=== PATIENT | male | born 1950 | race Caucasian/White ===

== ENCOUNTER 2016-07-08 05:06 | Observation (INO) | payer OTHER ==
[2016-06-18 08:07] VITALS: BMI 24.0
[~2016-07-08] VITALS: Ht 175.3 cm; Wt 74.1 kg
[2016-07-08] VITALS (10 sets, daily range): BP systolic 137–161; BP diastolic 73–92; PULSE 54–80; TEMP 36.4–37.1; O2SAT 93–100; Ht 175.3 cm; Wt 74.1 kg
[~2016-07-08 05:06] MED LIST: IBUP-1050 PO; LSN40 PO; PRAV20TA PO; TADA10TA PO
[2016-07-08] MEDS ORDERED: CEFAZOLIN 2000 MG/60 ML D5W IV SCH (06:00)
[2016-07-08] MEDS ORDERED: LACTATED RINGER'S 1000ML 1,000 ML IV SCH (06:15)
[2016-07-08] MEDS ORDERED: MIDAZOLAM HCL 1 MG/ML 2ML VIAL ONE (06:49)
[2016-07-08] MEDS ORDERED: FENTANYL CITRATE INJ 50 MCG/1 ML 2 ML VIAL ONE ×2 (06:49→07:24)
[2016-07-08] MEDS ORDERED: SUCCINYLCHOLINE CHLORIDE 20 MG/ML 10 ML VIAL IV ONE (07:14)
[2016-07-08] MEDS ORDERED: ONDANSETRON INJ 2 MG/ML 2 ML VIAL ONE (07:14)
[2016-07-08] MEDS ORDERED: ROCURONIUM BROMIDE 10 MG/ML 5 ML VIAL ONE (07:14)
[2016-07-08] MEDS ORDERED: DEXAMETHASONE SOD INJ 4 MG/ML VIAL ONE (07:14)
[2016-07-08] MEDS ORDERED: LIDOCAINE HCL 2% 2 ML VIAL (20MG/ML) ONE (07:14)
[2016-07-08] MEDS ORDERED: PROPOFOL IV EMULSION 10 MG/ML 20 ML VIAL IV ONE (07:14)
[2016-07-08] MEDS ORDERED: EpHEDrine SULFATE INJ 50 MG/ML AMP ONE (08:02)
[2016-07-08] MEDS ORDERED: ONDANSETRON INJ 2 MG/ML 2 ML VIAL IV PRN ×2 (08:15→09:00)
[2016-07-08] MEDS ORDERED: EpHEDrine SULFATE INJ 50 MG/ML AMP IV PRN (08:15)
[2016-07-08] MEDS ORDERED: CEFAZOLIN SOD 1 GM VIAL IRRIG ONE (08:15)
[2016-07-08] MEDS ORDERED: ATROPINE SULFATE 0.1 MG/ML 5ML SYR IV PRN (08:15)
[2016-07-08] MEDS ORDERED: FLUMAZENIL 0.1 MG/1 ML 10 ML VIAL IV PRN (08:15)
[2016-07-08] MEDS ORDERED: LABETALOL HCL IV 5 MG/ML 20ML IV PRN (08:15)
[2016-07-08] MEDS ORDERED: NALOXONE HCL 0.4 MG/1 ML VIAL/CARP IV PRN (08:15)
[2016-07-08] MEDS ORDERED: PROMETHAZINE HCL INJ 12.5 MG in SODIUM CHLORIDE 0.9% 50ML 50 ML IV PRN ×2 (08:15→10:30)
[2016-07-08] MEDS ORDERED: BUPIVACAINE 0.5 % 5 MG/1 ML MPF 30ML VIAL INJ ONE (08:32)
--- NOTE | 2016-07-08 08:42 | [facility] Operative Report ---
Operative Report Operative Date Jul 08, 2016. Pre-Operative Diagnosis Bilateral inguinal hernias Post-Operative Diagnosis same Procedure(s) Performed laparoscopic Lt inguinal hernia repair open Rt ing hernia repair Surgeon Dr.Robert Castañeda Manager Continuous Improvement Surgeon(s) Nabor Dubois PA-C Findings bilateral direct and indirect defects w/ lipomas Specimens none per surgeon Anesthesia gen Complication(s) None Disposition Recovery Room / PACU I attest to the content of the Intraoperative Record and any orders documented therein. Any exceptions are noted below.
[2016-07-08] MEDS ORDERED: MoRPHine SULFATE 4 MG/ML 1 ML CARP\\VIAL IV PRN (09:00)
[2016-07-08] MEDS ORDERED: MoRPHine SULFATE 2 MG/ML CARP IV PRN (09:00)
[2016-07-08] MEDS ORDERED: PROMETHAZINE HCL INJ 25 MG in SODIUM CHLORIDE 0.9% 50ML 50 ML IV PRN (09:00)
[2016-07-08] MEDS ORDERED: HYDROCODONE/ACETAMOPHEN 5/325MG TAB PO PRN ×2 (09:00)
[2016-07-08] MEDS: HYDROmorphone INJ 1 MG/ML SYR IV PRN ×4 (09:09→09:24)
--- NOTE | 2016-07-08 09:18 | OPERATIVE REPORT ---
DATE OF OPERATION: 07/08/2016 NAME OF OPERATION: Laparoscopic left inguinal hernia repair and open right inguinal hernia repair. PREOPERATIVE DIAGNOSIS: Bilateral inguinal hernias. POSTOPERATIVE DIAGNOSIS: Same. STAFF SURGEON: Dr. Castañeda. ECD: Eliceo Dubois PA-C. ANESTHESIA: General. FINDINGS: The patient had bilateral direct and indirect defects with lipomas. PROCEDURE: The patient was brought into the operating room and placed on the operating table in a supine position. Pneumatic stockings, Zee catheter, orogastric tube were placed. His tissue was anesthetized using 0.5% plain Marcaine in the skin and subcutaneous tissue area. Initial incision was made above the umbilicus through previous scar tissue from laparoscopic cholecystectomy, carrying dissection down to the fascia, placing a Veress needle producing pneumoperitoneum. A 5 mm port was placed initially and then an 11 mm port placed at this level, and then a camera passed. Under visualization, two 5 mm ports were placed, one in left and right lateral. On inspection, the patient had a large right inguinal hernia, which I felt should be repaired open, and then a more small to moderate left inguinal hernia. It was apparent that both hernias were direct and indirect defects. The left side was approached. The peritoneum was brought down away from the fascia from medial to lateral superior to the defects, reducing both the direct and indirect hernia sacs and the lipoma. At this point, a large mesh patch was obtained and placed into the abdomen. It was then placed into the site of dissection covering both defects very well. It was secured superiorly using absorbable tacks. The peritoneum was then brought up over the mesh and secured using absorbable tacks. At this point, the pneumoperitoneum was reduced. All ports were removed. The fascia at the umbilicus closed using interrupted 0 Vicryl suture, and then the skin reapproximated using 5-0 Prolene suture. At this point, the right inguinal area was approached. The skin was anesthetized using 0.5% plain Marcaine, and then incision made parallel to the inguinal ligament, carrying dissection down identifying the external oblique fibers. These were then incised along their length to the external ring, mobilizing the cord structures. The patient had a direct hernia sac, an indirect hernia sac and a lipoma of the cord. The lipoma was excised and ligated using 2-0 silk suture. I was able to identify the ilioinguinal and iliohypogastric nerves. At this point, both defects were repaired using mesh plugs placed into the direct and indirect defects, secured to surrounding tissue using 2-0 Ethibond suture, and then a large mesh patch placed into the floor of the canal over the mesh plugs, around the cord structures, secured using 2-0 Ethibond suture. The external oblique fibers were then closed over the mesh using 2-0 Ethibond suture. The site was irrigated with antibiotic solution, and then the subcutaneous tissue reapproximated using 2-0 plain catgut suture, then the skin reapproximated using 4-0 nylon suture and Steri-Strips. As a note, on the right side in the area of the incision was a small area which appeared to be a blackhead, which was excised. At this point, dressings were applied and the patient transferred to recovery room in stable condition. I attest to the content of the Intraoperative Record and any orders documented therein. Any exceptio ns are noted below.
[2016-07-08] MEDS ORDERED: GLYCOPYRROLATE INJ 0.2 MG/ML VIAL ONE (09:45)
[2016-07-08] MEDS ORDERED: NEOSTIGMINE METHYLSULFATE 5 MG/5 ML SYR ONE (09:45)
--- NOTE | 2016-07-08 09:57 | Anesthesiology Progress Note ---
Anesthesia Post Op Note Date & Time Jul 08, 2016 at 09:57 Vital Signs Pain Intensity: 3 Vital Signs Past 12 Hours Date Time Temp Pulse Resp B/P Pulse Ox O2 Delivery O2 Flow Rate FiO2 07/08/16 09:55 62 15 145/78 100 Nasal Cannula 2 07/08/16 09:45 62 17 159/82 100 Nasal Cannula 2 07/08/16 09:35 36.1 58 15 142/84 99 Nasal Cannula 2 07/08/16 09:25 59 14 139/80 99 Nasal Cannula 2 07/08/16 09:15 67 29 148/71 100 Mask 10 07/08/16 09:05 72 20 137/76 100 Mask 10 07/08/16 08:58 36.8 71 18 147/82 100 Mask 10 07/08/16 05:36 36.7 56 18 156/92 100 Room Air Notes Mental Status: alert / awake / arousable, participated in evaluation Pt Amnestic to Procedure: Yes Nausea / Vomiting: adequately controlled Pain: adequately controlled Airway Patency, RR, SpO2: stable & adequate BP & HR: stable & adequate Hydration State: stable & adequate Anesthetic Complications: no major complications apparent
[2016-07-08] MEDS: LACTATED RINGER'S 1000ML 1,000 ML IV SCH (10:35)
[2016-07-08] MEDS ORDERED: IV FLUIDS COMPLETED PRN (10:45)
[2016-07-08] MEDS: LISINOPRIL 40 MG TAB PO SCH (12:26)
[2016-07-08] MEDS: KETOROLAC TROMETHAMINE 30 MG/ML VIAL IV. SCH ×3 (12:27→22:19)
[2016-07-08] MEDS: CEFAZOLIN IV 1,000 MG in DEXTROSE 5% 50ML 50 ML IV SCH ×3 (12:27→23:45)
[2016-07-08] MEDS ORDERED: HYDR-5688 PO (12:32)
[2016-07-08] MEDS ORDERED: CEPH500C2 PO (12:32)
--- NOTE | 2016-07-08 12:36 | Discharge Instructions ---
Discharge Instructions Admission Reason for Admission: Left Inguinal Hernia Discharge Discharge Diagnosis / Problem: bilateral inguinal hernias Discharge Goals Goal(s): Decrease discomfort, Improve function, Improve disease control Activity Recommendations Activity Limitations: as noted below Exercise/Sports Limitations: until after follow-up appointment May Resume Sexual Activity: when tolerated Driving or Machine Use: 5-7 days lifting less than 20 lbs may shower over incisions 07/10 . Instructions / Follow-Up Instructions / Follow-Up SPECIAL CARE INSTRUCTIONS: * Cover incisions and change daily for comfort/drainage. * Leave steri strips in place * Avoid constipation- may use Senokot S and Milk of Magnesia twice daily as directed on package * May use ibuprofen for pain as tolerated. * Expect some swelling and bruising. Call your doctor if: * Temperature above 101 degrees * Pain not relieved by pain medicine ordered * There is increased drainage or redness from any incision * You have any unanswered questions or concerns [phone]. FOLLOW UP VISIT: If not already scheduled, please call the office for a follow-up visit. for next week- wound check and some sutures OFFICE PHONE NUMBER: Dr. Castañeda Office Current Hospital Diet Patient's current hospital diet: Regular Diet Discharge Diet Recommended Diet: Regular Diet Procedures Procedures Performed: Left Laparoscopic Inguinal Hernia Repair with insertion of mesh; Open Right Inguinal Hernia Repair with insertion of mesh Pending Studies Studies pending at discharge: no Medical Emergencies . Who to Call and When: Medical Emergencies: If at any time you feel your situation is an emergency, please call 911 immediately. . Non-Emergent Contact Non-Emergency issues call your: Surgeon . "Provider Documentation" section prepared by Sam Castañeda. VTE Core Measure Inpt VTE Proph given/why not?: SCD's
[2016-07-08] MEDS: MAGNESIUM HYDROXIDE SUSP 30 ML UDC PO SCH ×2 (13:47→20:38)
[2016-07-08] MEDS: DOCUSATE SODIUM/SENNA 50/8.6MG TAB PO SCH ×2 (13:48→20:38)
[2016-07-08] MEDS ORDERED: PRAVASTATIN SOD 20 MG TAB PO SCH (21:00)
[2016-07-08] MEDS ORDERED: COUGH DROP (SUGAR FREE) LOZ 24 LOZ/1 BOX ONE (23:47)
[2016-07-09] MEDS: LACTATED RINGER'S 1000ML 1,000 ML IV SCH (01:23)
[2016-07-09 03:11] VITALS: BP 152/85; PULSE 53; TEMP 36.6; O2SAT 96
[2016-07-09] MEDS: KETOROLAC TROMETHAMINE 30 MG/ML VIAL IV. SCH (05:18)
[2016-07-09] MEDS: CEFAZOLIN IV 1,000 MG in DEXTROSE 5% 50ML 50 ML IV SCH (05:18)
--- NOTE | 2016-07-09 06:35 | DISCHARGE SUMMARY ---
PRINCIPAL DIAGNOSIS: Bilateral inguinal hernias. PROCEDURES: The patient underwent laparoscopic left inguinal hernia repair and open right inguinal hernia repair. HISTORY OF PRESENT ILLNESS: The patient is a 66-year-old male with bilateral inguinal hernias brought into the hospital for elective repair. The patient was brought into the hospital on 07/08/2016 where he was taken to the operating room and underwent laparoscopic left inguinal hernia repair and open right inguinal hernia repair. He has done very well overnight and is voiding well and is felt stable for discharge home today to be followed in the surgical clinic next week.
[2016-07-09 07:57] VITALS: BP 145/78; PULSE 52; TEMP 36.6; O2SAT 99
[2016-07-09] MEDS: LISINOPRIL 40 MG TAB PO SCH (08:32)
[2016-07-09] MEDS: MAGNESIUM HYDROXIDE SUSP 30 ML UDC PO SCH (08:33)
[2016-07-09] MEDS: DOCUSATE SODIUM/SENNA 50/8.6MG TAB PO SCH (08:33)
[2016-07-09 09:36] VITALS: BP 145/78; PULSE 52; TEMP 36.6; O2SAT 99
--- NOTE | 2016-07-10 11:04 | Anesthesiology Progress Note ---
Anesthesia Post Op Note Date & Time Jul 10, 2016 at 11:03 Vital Signs Pain Intensity: 0.0 Notes Mental Status: alert / awake / arousable, participated in evaluation Pt Amnestic to Procedure: Yes Nausea / Vomiting: adequately controlled Pain: adequately controlled Airway Patency, RR, SpO2: stable & adequate BP & HR: stable & adequate Hydration State: stable & adequate Anesthetic Complications: no major complications apparent
== END 2016-07-09 10:37 | disposition home or self-care (01) ==
LOC: ENRESERVTM → ENRESERVDT → C.ACU 05:06 → C.MSW 08:46
PROVIDERS: ADMIT Surgery; ATTEND Surgery
DX: K40.20 Bilateral inguinal hernia, without obstruction or gangrene, not specified as recurrent (principal); I65.29 Occlusion and stenosis of unspecified carotid artery; K63.5 Polyp of colon; N28.1 Cyst of kidney, acquired; K57.90 Diverticulosis of intestine, part unspecified, without perforation or abscess without bleeding; K64.9 Unspecified hemorrhoids; E78.5 Hyperlipidemia, unspecified; I10 Essential (primary) hypertension; F52.8 Other sexual dysfunction not due to a substance or known physiological condition; K64.8 Other hemorrhoids; K40.90 Unilateral inguinal hernia, without obstruction or gangrene, not specified as recurrent; L71.9 Rosacea, unspecified; R55 Syncope and collapse

== ENCOUNTER → 2017-06-02 | Outpatient (CLI) | payer OTHER ==
[2017-06-02 09:56] LABS: ALT/SGPT 26 U/L (12-78); AST/SGOT 15 U/L (15-37); BLOOD UREA NITROGEN 13 mg/dl (7-18); BUN/CREATININE RATIO 12.3 (10-20); CALCIUM 9.2 mg/dl (8.5-10.1); CARBON DIOXIDE 31 mmol/L (21-32); CHLORIDE 104 mmol/L (98-107); CHOLESTEROL 220 mg/dl (0-200); CREATININE 1.05 mg/dl (0.60-1.40); GLUCOSE 95 mg/dl (70-99); POTASSIUM 4.3 mmol/L (3.5-5.1); SODIUM 141 mmol/L (136-145); TRIGLYCERIDES 123 mg/dl (0-150); VERY LOW DENSITY LIPOPROT CALC 25 mg/dl
[2017-06-02 10:04] LABS: CHOLESTEROL/HDL RATIO 4.1; HDL CHOLESTEROL 54 mg/dl; LDL CHOLESTEROL CALCULATED 141 mg/dl
== END | disposition home or self-care (01) ==
LOC: C.LAB1850 07:10
PROVIDERS: ATTEND Internal Medicine
DX: E78.5 Hyperlipidemia, unspecified (principal); I10 Essential (primary) hypertension; F52.8 Other sexual dysfunction not due to a substance or known physiological condition

== ENCOUNTER → 2017-08-05 | Outpatient (CLI) | payer OTHER ==
--- NOTE | 2017-08-05 15:47 | DIAGNOSTIC IMAGING REPORT ---
MRI the right shoulder no contrast CLINICAL HISTORY: Right shoulder pain COMPARISON STUDY: No previous studies for comparison. FINDINGS: Imaging was performed in the sagittal, coronal, and axial planes. There are moderately advanced degenerative changes within the acromioclavicular joint. The bicipital tendon appears intact. There are no areas of marrow edema to indicate occult fracture. There is mild rotator cuff tendinopathy. There is a subtle partial-thickness rim rent tear of the supraspinatus tendon. No labral tears are visualized. IMPRESSION: 1. Subtle partial-thickness rim rent tear of the supraspinatus tendon 2. 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 08/05/2017 3:46 PM Dictated Date/Time: 08/05/2017 3:39 PM
== END | disposition home or self-care (01) ==
LOC: C.MRIBC 14:19
PROVIDERS: ATTEND Orthopaedic Surgery
DX: M75.111 Incomplete rotator cuff tear or rupture of right shoulder, not specified as traumatic (principal); M89.8X1 Other specified disorders of bone, shoulder

== ENCOUNTER → 2017-09-24 | Outpatient (CLI) | payer OTHER, BC | END | disposition home or self-care (01) | LOC: C.LAB1850 08:35 | PROVIDERS: ATTEND Internal Medicine | DX: Z12.5 Encounter for screening for malignant neoplasm of prostate (principal) ==